=== PATIENT | male | born 1970 | race Caucasian/White ===

== ENCOUNTER 2021-09-08 12:05 | Emergency (ER) | payer SELFPAY ==
[2021-09-08] MEDS ORDERED: Bupivacaine 0.5% 10 ML VIAL ONE (13:27)
== END 2021-09-08 14:39 | disposition home or self-care (01) ==
LOC: ERS 12:05
DX: S63.286A Dislocation of proximal interphalangeal joint of right little finger, initial encounter (principal); F17.210 Nicotine dependence, cigarettes, uncomplicated; W11.XXXA Fall on and from ladder, initial encounter
CPT/HCPCS: 26770; J3490